=== PATIENT | female | born 1930 | race Caucasian/White ===

== ENCOUNTER 2016-12-27 13:46 | Inpatient (IN) | payer MEDICARE ==
[~2016-12-27] VITALS: Ht 162.6 cm; Wt 41.7 kg
[~2016-12-27 13:46] MED LIST: PANT40TA2 PO
--- NOTE | 2016-12-27 13:55 | NUR ---
PT CAME IN FOR WORSENING OF RIGHT LEG SWELLING X 2 WEEKS. NAD NOTED. DENIES FEVER. NOTED DRY DRESSING ON WOUND. VSS. SAFETY AND COMFORT MEASURES PROVIDED. WILL MONITOR.
--- NOTE | 2016-12-27 13:55 | NUR ---
IV ACCESS STARTED. BLOOD DRAWN FOR LABS.
[2016-12-27] MEDS ORDERED: LEVOFLOXACIN 750 MG /D5W 150ML 150 ML IV ONE (14:45)
--- NOTE | 2016-12-27 14:50 | NUR ---
XRAY DONE AT BS.
--- NOTE | 2016-12-27 14:57 | NUR ---
MRSA SWAB DONE. WOUND CULTURE SWAB DONE.
[2016-12-27] MEDS ORDERED: LEVOFLOXACIN 750 MG /D5W 150ML PIGGYBACK IV ONE (15:00)
[2016-12-27] MEDS ORDERED: VANCOMYCIN 1 GM in IV D5W 250 ML IV ONE (15:00)
[2016-12-27 15:10] LABS: BASOPHILS % (AUTO) 0.4 % (0.0-2.0); EOSINOPHILS % (AUTO) 0.4 % (0.0-6.0); HEMATOCRIT 39 % (33-45); HEMOGLOBIN 12.9 g/dL (11.5-14.8); LYMPHOCYTES # (AUTO) 0.7 /CMM (0.8-4.8); LYMPHOCYTES % (AUTO) 14.2 % (20.0-44.0); MEAN CORPUSCULAR HEMOGLOBIN 31 PG (26.0-33.0); MEAN CORPUSCULAR HGB CONC 34 g/dl (31.0-36.0); MEAN CORPUSCULAR VOLUME 91 fL (82-100); MONOCYTES # (AUTO) 0.4 /CMM (0.1-1.30); MONOCYTES % (AUTO) 8.7 % (2.0-12.0); NEUTROPHILS # (AUTO) 3.8 /CMM (1.8-8.9); NEUTROPHILS % (AUTO) 76.3 % (43.0-81.0); PLATELET COUNT (AUTO) 201 /CMM (150-450); RDW COEFFICIENT OF VARIATION 14.4 (11.5-15.0); RED BLOOD CELL COUNT(AUTO) 4.24 MIL/uL (4.0-5.2)
[2016-12-27 15:20] LABS: PROTHROMBIN TIME 10.7 SECS (9.5-12.7)
[2016-12-27 15:23] LABS: APPEARANCE,URINE SL CLOUDY (CLEAR); BILIRUBIN,URINE NEGATIVE (NEGATIVE); BLOOD, URINE TRACE-INTA Ery/uL (NEGATIVE); COLOR,URINE YELLOW (YELLOW); KETONES,URINE NEGATIVE (NEGATIVE); LEUKOCYTE ESTERASE ,URINE NEGATIVE (NEGATIVE); NITRITE, URINE NEGATIVE (NEGATIVE); PROTEIN,URINE NEGATIVE (NEGATIVE); UGLUCOSE NEGATIVE (NEGATIVE); UROBILINOGEN,URINE 0.2 EU/dL (0.2)
[2016-12-27 15:29] LABS: BACTERIA,URINE Few /HPF (None Seen); SQUAMOUS EPITHELIAL CELL,UR Few /HPF (None Seen); WBC,URINE 0-2 /HPF (0-3)
[2016-12-27 15:32] LABS: CALCIUM, SERUM 8.5 mg/dL (8.5-10.1); CARBON DIOXIDE 29 mmol/L (21-32); CHLORIDE 99 mmol/L (98-107); CREATININE 0.8 mg/dL (0.6-1.3); GLUCOSE 96 mg/dL (74-106); SODIUM SERUM 136 mmol/L (136-145); UREA NITROGEN, BLOOD 12 mg/dL (7-18)
[2016-12-27 15:49] LABS: ALANINE AMINOTRANSFERASE 23 U/L (12-78); ALBUMIN 3.4 g/dL (3.4-5.0); ALKALINE PHOSPHATASE 101 U/L (46-116); ASPARTATE AMINOTRANSFERASE 27 U/L (15-37); BILIRUBIN,DIRECT 0.2 mg/dL (0.0-0.2); BILIRUBIN,TOTAL 0.5 mg/dL (0.2-1.0); TOTAL PROTEIN, SERUM 6.7 g/dL (6.4-8.2)
--- NOTE | 2016-12-27 15:52 | NUR ---
STARLA KU AT BS.
--- NOTE | 2016-12-27 16:03 | NUR ---
CALLED [facility], PROGRAM DEVELOPMENT SPECIALIST WAS PAGED.
--- NOTE | 2016-12-27 16:13 | NUR ---
REPORT GIVEN TO ELDER CALLAHAN FOR MS ROOM 111-1.
[2016-12-27] MEDS ORDERED: ALEN70TA45 PO (16:23)
[2016-12-27] MEDS ORDERED: ASPI-991 PO (16:23)
[2016-12-27] MEDS ORDERED: SULF1TAB48 PO (16:23)
--- NOTE | 2016-12-27 16:24 | NUR ---
DR CHAMBERS ON THE PHONE WITH DR BELL.
--- NOTE | 2016-12-27 17:00 | NUR ---
MS RN ADMITTING NOTES: REC'D REPORT FROM BENY SHETH RN. PT TRANSFERRED VIA GURNEY ACCOMPANIED BY PIE DOUGH ROLLER. PT IS AMBULATORY W/ SPC. ON ROOM AIR, DENIES SOB, SATURATING 100%. PT DENIES ANY PAIN/ DISCOMFORT AT THIS TIME. HAS R AC G20, SL, FLUSHED,PATENT & INTACT W/ NO S/SX OF INFECTION/ INFILTRATION NOTED. PT NOTED R LEG CELLULITIS, APPLIED MEPILEX ON WOUND. PICTURES TAKEN. WOUND CONSULT ORDERED. DR. BELL MADE AWARE OF ADMISSION W/ NEW ORDERS & CARRIED OUT. BELONGINGS CHECKED BY PIE DOUGH ROLLER. PT ORIENTED TO ROOM. PROVIDED COMFORT & SAFETY MEASURES. BED KEPT LOW & IN LOCKED POS. CALL LIGHT PLACED W/IN REACH. ADVISED TO PRESS CALL LIGHT WHEN IN NEED OF ASSISTANCE. FALL PRECAUTION OBSERVED. WILL ENDORSE TO PM RN FOR TANA.
[2016-12-27] MEDS ORDERED: IV NS 0.9% 1,000 ML IV PRN (17:47)
[2016-12-27 18:00] VITALS: BP 132/68
[2016-12-27] MEDS ORDERED: LEVOFLOXACIN 500 MG /D5W 100ML 500 MG in PREMIX 1 EA IV SCH (18:00)
[2016-12-27] MEDS ORDERED: Z GUARD REMEDY 2 OZ OINT TP PRN (18:00)
[2016-12-27] MEDS ORDERED: MAG HYDROX/AL HYDROX/SIMETH 30 ML UDC PO PRN (18:00)
[2016-12-27] MEDS ORDERED: MAGNESIUM HYDROXIDE 30 ML UDC PO PRN (18:00)
[2016-12-27] MEDS ORDERED: ZOLPIDEM TARTRATE 5 MG TABLET PO PRN (18:00)
[2016-12-27] MEDS ORDERED: ONDANSETRON HCL/PF 4 MG/2 ML VIAL IVP PRN (18:00)
[2016-12-27] MEDS ORDERED: ACETAMINOPHEN 325 MG TABLET PO PRN (18:00)
[2016-12-27] MEDS ORDERED: FEE PK DOSING 1 MIN EA MC ONE (18:14)
--- NOTE | 2016-12-27 19:40 | NUR ---
RN INITIAL NOTES: RECEIVED REPORT FROM DAY RN, PT IN BED, AWAKE, A/O X3 ON ROOM AIR DENIES ANY SOB RESPIRATION EVEN AND UNLABORED, DENIES ANY PAIN AT THIS TIME, ASIDE FROM THE REDNESS AND SWELLING ON RLE, PT HAS RIGHT AC IV PATENT AND FLUSHING WELL, INFUSING WITH NS AT 75ML/HR, NO S/S OF REDNESS OR INFILTRATION NOTED. BLE OFFLOADED. PT USES QUAD CANE. SAFETY PRECAUTIONS FOR FALL INITIATED CALL LIGHT IN REACH, WILL CONTINUE TO MONITOR
[2016-12-27 20:00] VITALS: BP 104/54
[2016-12-27] MEDS ORDERED: VANCOMYCIN 1.25 GM in IV D5W 500 ML IV SCH (21:00)
--- NOTE | 2016-12-27 21:38 | NUR ---
RN NOTES: PT REFUSED THE IVDF, SHE STATED SHE WANTS IT REMOVE EVEN THE NEEDLE, SHE STATED THERE IS NO WAY SHE WILL SLEEP TONIGHT WITH THE IV ACCESS IN PLACED, FIRE CONTROL OFFICER MADE AWARE, PER FIRE CONTROL OFFICER ITS OKAY TO REMOVED IV FOR NOW, THEN JUST PUT IT IN AM, EDUCATION PROVIDED TO THE PT, STILL REFUSED IV ACCESS AND FLUID
[2016-12-28 04:00] VITALS: BP 118/53
--- NOTE | 2016-12-28 07:10 | NUR ---
RN CLOSING NOTES: PT IN BED, AWAKE, DENIES ANY PAIN OR DISCOMFORT AT THIS TIME, NO SOB NOTED, PT REFUSED IV INSERTION, ADVENTURE EDUCATION TEACHER AWARE BLE KEPT OFFLOADED,. VS REMAINS STABLE, NEEDS ATTENDED. NO UNTOWARD EVENT HAPPENED THROUGHOUT THE SHIFT. SAFETY PRECAUTIONS REMAINS ENGAGED, CALL LIGHT IN REACH, WILL ENDORSE TO DAY RN FOR TANA.
[2016-12-28 07:19] LABS: BASOPHILS % (AUTO) 0.4 % (0.0-2.0); EOSINOPHILS % (AUTO) 0.8 % (0.0-6.0); HEMATOCRIT 34 % (33-45); HEMOGLOBIN 11.6 g/dL (11.5-14.8); LYMPHOCYTES # (AUTO) 0.7 /CMM (0.8-4.8); LYMPHOCYTES % (AUTO) 19.6 % (20.0-44.0); MEAN CORPUSCULAR HEMOGLOBIN 31 PG (26.0-33.0); MEAN CORPUSCULAR HGB CONC 34 g/dl (31.0-36.0); MEAN CORPUSCULAR VOLUME 91 fL (82-100); MONOCYTES # (AUTO) 0.4 /CMM (0.1-1.30); MONOCYTES % (AUTO) 10.8 % (2.0-12.0); NEUTROPHILS # (AUTO) 2.5 /CMM (1.8-8.9); NEUTROPHILS % (AUTO) 68.4 % (43.0-81.0); PLATELET COUNT (AUTO) 135 /CMM (150-450); RDW COEFFICIENT OF VARIATION 14.3 (11.5-15.0); RED BLOOD CELL COUNT(AUTO) 3.71 MIL/uL (4.0-5.2); WHITE BLOOD COUNT (AUTO) 3.7 K/uL (4.3-11.0)
[2016-12-28 07:34] LABS: CHOLESTEROL 123 mg/dL (<200); HDL CHOLESTEROL 71 mg/dL (40-60); LDL 45 mg/dL (0-99); TRIGLYCERIDES 37 mg/dL (30-150)
[2016-12-28 07:42] LABS: CALCIUM, SERUM 8.1 mg/dL (8.5-10.1); CARBON DIOXIDE 29 mmol/L (21-32); CHLORIDE 106 mmol/L (98-107); CREATININE 0.7 mg/dL (0.6-1.3); GLUCOSE 97 mg/dL (74-106); MAGNESIUM 1.8 mg/dL (1.8-2.4); PHOSPHORUS 3.6 mg/dL (2.5-4.9); POTASSIUM 4.1 mmol/L (3.5-5.1); SODIUM SERUM 142 mmol/L (136-145); UREA NITROGEN, BLOOD 8 mg/dL (7-18)
--- NOTE | 2016-12-28 07:50 | NUR ---
AM RN NOTE Received patient awake, A/O X3 verbally responsive able to make needs known. No acute distress noted. Bed in low locked position. Will continue to monitor.
[2016-12-28 08:00] VITALS: BP 120/53
[2016-12-28] MEDS: ASPIRIN EC 81 MG TABLET.DR PO SCH (08:11)
[2016-12-28] MEDS: PANTOPRAZOLE 40 MG TABLET.DR PO SCH (08:12)
--- NOTE | 2016-12-28 08:44 | NUR ---
AM RN NOTE Re-inserted new IV site on LFA #22 x1 attempt.
[2016-12-28] MEDS: VANCOMYCIN 500 MG in IV D5W 100 ML IV SCH (08:46)
--- NOTE | 2016-12-28 09:52 | NUR ---
WOUND CARE CONSULT PATIENT SEEN AND RIGHT LOWER MEDIAL LEG LESION EVALUATED. SEE CHIEF DIVERSITY OFFICER ASSESSMENT IN PCS FOR TODAY. RECOMMEND DPM CONSULT. RECOMMEND KEEP COVERED WITH MEPILEX FOR PROTECTION FOR NOW UNTIL SEEN BY SURGICAL TEAM. PATIENT CURRENTLY INDEPENDENT WITH BED MOBILITY, AND AMBULATORY AT THIS TIME WITH DAJUAN AT 18. WILL SEE PRN Addendum: 12/28/16 at 0959 by JENELLE HUDSON WNDNU Amended: Links added.
[2016-12-28] MEDS: LEVOFLOXACIN 250 MG /D5W 50 ML 250 MG in PREMIX 1 EA IV SCH (14:18)
[2016-12-28] MEDS: HYDROCODONE/APAP 5/325MG 1 EACH TABLET PO PRN (15:39)
[2016-12-28 16:00] VITALS: BP 131/77
--- NOTE | 2016-12-28 18:30 | NUR ---
AM RN NOTE Patient resting in her bed no acute distress noted. IV site intact and patent. Will endorse care to next shift.
--- NOTE | 2016-12-28 19:30 | NUR ---
MS RN NOTE: PATIENT RESTING IN BED, NO ACUTE DISTRESS NOTED. BREATHING EVEN AND UNLABORED, NO SOB NOTED. IV TO LFA IN PLACE, INFUSING NS AT 75ML/HR. BED LOCKED AND IN LOWEST POSITION, CALL LIGHT IN REACH. WILL CONTINUE TO MONITOR.
[2016-12-28 20:00] VITALS: BP 100/64
[2016-12-29] MEDS: VANCOMYCIN 500 MG in IV D5W 100 ML IV SCH (03:02)
[2016-12-29 04:00] VITALS: BP 95/44
--- NOTE | 2016-12-29 06:30 | NUR ---
MS RN NOTE: PATIENT RESTING IN BED, NO ACUTE DISTRESS NOTED. BREATHING EVEN AND UNLABORED, NO SOB NOTED. IV TO LFA IN PLACE. BED LOCKED AND IN LOWEST POSITION, CALL LIGHT IN REACH. WILL ENDORSE TO DAY NURSE TO CONTINUE WITH PLAN OF CARE.
--- NOTE | 2016-12-29 07:10 | NUR ---
RN INITIAL NOTE PATIENT RECEIVED IN BED, RESTING. EASILY AROUSED, ALERT AND ORIENTED. ABLE TO MAKE NEEDS KNOWN. NO S/S OF PAIN OR DISCOMFORT. DENIES PAIN AT THIS TIME. RESPIRATIONS ARE EVEN AND UNLABORED. SATING WELL ON ROOM AIR. NO S/S OF RESPIRATORY DISTRESS OR SOB. PATIENT IS AMBULATORY. IV SITE FLUSHED, PATENT. SKIN IS WARM AND DRY TO TOUCH. SAFETY PRECAUTIONS IMPLEMENTED. BED IN LOCKED, LOW POSITION WITH TWO SIDE RAILS UP. WILL CONTINUE TO MONITOR CLOSELY.
[2016-12-29 07:16] LABS: BASOPHILS % (AUTO) 0.5 % (0.0-2.0); EOSINOPHILS # (AUTO) 0.1 /CMM (0.0-0.7); EOSINOPHILS % (AUTO) 1.6 % (0.0-6.0); HEMATOCRIT 34 % (33-45); HEMOGLOBIN 11.8 g/dL (11.5-14.8); LYMPHOCYTES # (AUTO) 0.8 /CMM (0.8-4.8); LYMPHOCYTES % (AUTO) 20.7 % (20.0-44.0); MEAN CORPUSCULAR HEMOGLOBIN 31 PG (26.0-33.0); MEAN CORPUSCULAR HGB CONC 35 g/dl (31.0-36.0); MEAN CORPUSCULAR VOLUME 91 fL (82-100); MONOCYTES # (AUTO) 0.4 /CMM (0.1-1.30); MONOCYTES % (AUTO) 10.1 % (2.0-12.0); NEUTROPHILS # (AUTO) 2.6 /CMM (1.8-8.9); NEUTROPHILS % (AUTO) 67.1 % (43.0-81.0); PLATELET COUNT (AUTO) 135 /CMM (150-450); RDW COEFFICIENT OF VARIATION 14.3 (11.5-15.0); RED BLOOD CELL COUNT(AUTO) 3.78 MIL/uL (4.0-5.2); WHITE BLOOD COUNT (AUTO) 3.8 K/uL (4.3-11.0)
[2016-12-29 07:45] LABS: CARBON DIOXIDE 29 mmol/L (21-32); CHLORIDE 107 mmol/L (98-107); CREATININE 0.6 mg/dL (0.6-1.3); GLUCOSE 97 mg/dL (74-106); MAGNESIUM 1.9 mg/dL (1.8-2.4); PHOSPHORUS 3.1 mg/dL (2.5-4.9); POTASSIUM 4.4 mmol/L (3.5-5.1); SODIUM SERUM 142 mmol/L (136-145); UREA NITROGEN, BLOOD 10 mg/dL (7-18)
[2016-12-29] MEDS: PANTOPRAZOLE 40 MG TABLET.DR PO SCH (07:58)
[2016-12-29] MEDS: ASPIRIN EC 81 MG TABLET.DR PO SCH (07:58)
[2016-12-29 08:00] VITALS: BP 114/60
[2016-12-29] MEDS: HYDROCODONE/APAP 5/325MG 1 EACH TABLET PO PRN ×2 (09:41→18:26)
[2016-12-29 12:31] VITALS: BP 100/55
[2016-12-29 16:00] VITALS: BP 107/69
[2016-12-29] MEDS: LEVOFLOXACIN 250 MG /D5W 50 ML 250 MG in PREMIX 1 EA IV SCH (16:08)
[2016-12-29] MEDS ORDERED: LACTOBACILLUS RHAMNOSUS GG 1 EACH CAP.SPRINK PO SCH (17:00)
--- NOTE | 2016-12-29 19:04 | NUR ---
RN CLOSING NOTE PATIENT DISCHARGED HOME. PAPERWORK DONE. IV SITED DISCONTINUED. ID BAND REMOVED. RX GIVEN. CONTACTED RONIT FRIEND TO INFORM OF DISCHARGE.
== END 2016-12-29 19:00 | disposition home or self-care (01) | DRG 603 ==
LOC: ER 15:09 → MEDSG1 17:29
PROVIDERS: ADMIT Internal Medicine; ATTEND Internal Medicine
DX: L03.115 Cellulitis of right lower limb (principal); I50.22 Chronic systolic (congestive) heart failure; L97.819 Non-pressure chronic ulcer of other part of right lower leg with unspecified severity; Z90.710 Acquired absence of both cervix and uterus; Z98.890 Other specified postprocedural states; Z88.0 Allergy status to penicillin; Z88.8 Allergy status to other drugs, medicaments and biological substances; I70.90 Unspecified atherosclerosis; M81.0 Age-related osteoporosis without current pathological fracture; I83.018 Varicose veins of right lower extremity with ulcer other part of lower leg
CPT/HCPCS: 36415; 73590-TC; 80048-TC; 80061-TC; 80076-TC; 81000-TC; 83605-TC; 83735-TC; 84100-TC; 85025-TC; 85730-TC; 87040-TC; 87070-TC; 87081-TC; 87086-TC; 93971-TC; 97001-TC; A4216; A4606; J1956; J3370; J7030; J7060; Z7610

== ENCOUNTER 2017-12-28 07:52 | Inpatient (IN) | payer MEDICARE ==
[~2017-12-28] VITALS: Ht 154.9 cm; Wt 47.2 kg
[~2017-12-28 07:52] MED LIST changes: +ALEN70TA45 PO; +ASPI-1152 PO; +SULF1TAB48 PO
--- NOTE | 2017-12-28 08:00 | NUR ---
S/P GLF C/O RIGHT RIB PAIN, -KO. NAD NOTED, VSS, RESP EVEN AND UNLABORED, PT WAS PUT ON MONITOR, WAITING FOR MD ISBELL.
[2017-12-28 08:49] LABS: CALCIUM, SERUM 8.5 mg/dL (8.5-10.1); CARBON DIOXIDE 32 mmol/L (21-32); CHLORIDE 102 mmol/L (98-107); CREATININE 0.7 mg/dL (0.6-1.3); GLUCOSE 102 mg/dL (74-106); POTASSIUM 3.9 mmol/L (3.5-5.1); SODIUM SERUM 136 mmol/L (136-145); UREA NITROGEN, BLOOD 17 mg/dL (7-18)
[2017-12-28 08:52] LABS: EOSINOPHILS % (AUTO) 0.3 % (0.0-6.0); HEMATOCRIT 38 % (33-45); LYMPHOCYTES # (AUTO) 0.4 /CMM (0.8-4.8); LYMPHOCYTES % (AUTO) 6.8 % (20.0-44.0); MEAN CORPUSCULAR HEMOGLOBIN 32 PG (26.0-33.0); MEAN CORPUSCULAR HGB CONC 34 g/dl (31.0-36.0); MEAN CORPUSCULAR VOLUME 94 fL (82-100); MONOCYTES # (AUTO) 0.7 /CMM (0.1-1.30); MONOCYTES % (AUTO) 13.5 % (2.0-12.0); NEUTROPHILS # (AUTO) 4.3 /CMM (1.8-8.9); NEUTROPHILS % (AUTO) 79.4 % (43.0-81.0); PLATELET COUNT (AUTO) 104 /CMM (150-450); RDW COEFFICIENT OF VARIATION 15.5 (11.5-15.0); RED BLOOD CELL COUNT(AUTO) 4.08 MIL/uL (4.0-5.2); WHITE BLOOD COUNT (AUTO) 5.5 K/uL (4.3-11.0)
[2017-12-28 08:58] LABS: INR 1.03 (0.87-1.13)
[2017-12-28] MEDS ORDERED: IV NS 0.9% 1,000 ML IV PRN (09:48)
[2017-12-28] MEDS ORDERED: ONDANSETRON HCL/PF 4 MG/2 ML VIAL IVP PRN (10:00)
[2017-12-28] MEDS ORDERED: HYDROCODONE/APAP 5/325MG 1 EACH TABLET PO PRN (10:00)
[2017-12-28] MEDS ORDERED: HYDROCODONE/APAP 10/325MG 1 EA TABLET PO PRN (10:00)
[2017-12-28] MEDS ORDERED: ACETAMINOPHEN 325 MG TABLET PO PRN (10:00)
--- NOTE | 2017-12-28 10:15 | NUR ---
NOTARY PUBLIC PATIENT A/OX4, ADMITTED FOR MULTIPLE RIB FRACTURE, PATIENT IS IN NO DISTRESS, ONLY C/O PAIN DURING MOVEMENT, OTHERWISE PT STATED SHE'S COMFORTABLE AND SHE REFUSES PAIN MEDICINE. BREATHING EVEN AND UNLABORED, NO SOB NOTED, SKIN ASSESSMENT COMPLETED, SKIN DRY AND INTACT, PATIENT ABLE TO TURN SLOWLY, KEPT COMFORTABLE, NEEDS ATTENDED, CALL LIGHT WITHIN REACH, WILL CONTINUE TO MONITOR.
[2017-12-28] MEDS ORDERED: Z GUARD REMEDY 2 OZ OINT TP PRN (15:00)
[2017-12-28 16:00] VITALS: BP 134/72
--- NOTE | 2017-12-28 18:26 | NUR ---
RN NOTES PATIENT A/OX3, VERBALLY RESPONSIVE, NO DISTRESS NOTED, NO SHORTNESS OF BREATH OBSERVED. DENIES PAIN AT THIS TIME. IV HYDRATION ONGOING AND TOLERATING WELL, ASSISTED WITH ADLS, OT EVAL DONE, NEEDS ATTENDED AND MET, CALL LIGHT WITHIN REACH, WILL ENDORSE TO NIGHT COURT MAGISTRATE FOR TANA.
--- NOTE | 2017-12-28 19:30 | NUR ---
MS RN OPENING NOTES PATIENT A/OX3, VERBALLY RESPONSIVE, NO DISTRESS OR SOB NOTED. DENIES PAIN AT THIS TIME. IV HYDRATION ONGOING NS 0.9 % AT 73ML/H ,PT HAS TO USE SPIROMETER Q4H,TEACHING DONE. SAFETY PRECAUTIONS IN PLACE, CALL LIGHT WITHIN REACH. WILL CONTINUE TO MONITOR.
[2017-12-28 19:48] LABS: APPEARANCE,URINE CLEAR (CLEAR); BILIRUBIN,URINE NEGATIVE (NEGATIVE); BLOOD, URINE TRACE Ery/uL (NEGATIVE); COLOR,URINE YELLOW (YELLOW); KETONES,URINE NEGATIVE (NEGATIVE); LEUKOCYTE ESTERASE ,URINE NEGATIVE (NEGATIVE); NITRITE, URINE NEGATIVE (NEGATIVE); PROTEIN,URINE NEGATIVE (NEGATIVE); UGLUCOSE NEGATIVE (NEGATIVE); UROBILINOGEN,URINE 0.2 EU/dL (0.2)
[2017-12-28 20:00] VITALS: BP 115/62
[2017-12-28 20:29] LABS: BACTERIA,URINE None seen /HPF (None Seen); SQUAMOUS EPITHELIAL CELL,UR Few /HPF (None Seen); WBC,URINE NONE SEEN /HPF (0-3)
--- NOTE | 2017-12-29 05:55 | NUR ---
PT PULED OUT IV LINE. NO IV ASSESS AT THIS TIME SINCE PT REFUSING.
--- NOTE | 2017-12-29 06:26 | NUR ---
MS RN CLOSING NOTES PATIENT A/OX2, VERBALLY RESPONSIVE, NO DISTRESS OR SOB NOTED. DENIES PAIN AT THIS TIME.PT WAS ENCOURAGED TO USE SPIROMETER Q4. SAFETY PRECAUTIONS IN PLACE, CALL LIGHT WITHIN REACH. WILL ENDORSE TO NEXT SHIFT FOR TANA.
[2017-12-29 06:41] LABS: BASOPHILS % (AUTO) 0.2 % (0.0-2.0); EOSINOPHILS % (AUTO) 1.8 % (0.0-6.0); HEMATOCRIT 35 % (33-45); LYMPHOCYTES # (AUTO) 0.8 /CMM (0.8-4.8); LYMPHOCYTES % (AUTO) 17.3 % (20.0-44.0); MEAN CORPUSCULAR HEMOGLOBIN 32 PG (26.0-33.0); MEAN CORPUSCULAR HGB CONC 34 g/dl (31.0-36.0); MEAN CORPUSCULAR VOLUME 94 fL (82-100); MONOCYTES # (AUTO) 0.6 /CMM (0.1-1.30); MONOCYTES % (AUTO) 13.4 % (2.0-12.0); NEUTROPHILS % (AUTO) 67.3 % (43.0-81.0); PLATELET COUNT (AUTO) 104 /CMM (150-450); RDW COEFFICIENT OF VARIATION 15.6 (11.5-15.0); RED BLOOD CELL COUNT(AUTO) 3.75 MIL/uL (4.0-5.2); WHITE BLOOD COUNT (AUTO) 4.5 K/uL (4.3-11.0)
[2017-12-29 06:48] LABS: CALCIUM, SERUM 7.8 mg/dL (8.5-10.1); CARBON DIOXIDE 29 mmol/L (21-32); CHLORIDE 103 mmol/L (98-107); CREATININE 0.6 mg/dL (0.6-1.3); GLUCOSE 100 mg/dL (74-106); MAGNESIUM 1.7 mg/dL (1.8-2.4); PHOSPHORUS 3.2 mg/dL (2.5-4.9); POTASSIUM 3.6 mmol/L (3.5-5.1); SODIUM SERUM 137 mmol/L (136-145); UREA NITROGEN, BLOOD 14 mg/dL (7-18)
[2017-12-29 06:54] LABS: CHOLESTEROL 128 mg/dL (<200); HDL CHOLESTEROL 82 mg/dL (40-60); LDL 40 mg/dL (0-99); THYROID STIMULATING HORMONE 2.475 uIU/mL (0.358-3.74); TRIGLYCERIDES 34 mg/dL (30-150)
--- NOTE | 2017-12-29 07:03 | NUR ---
MS RN NOTES PATIENT IN BED ALERT ORIENTED X 3. NO ACUTE DISTRESS NOTED. BREATHING UNLABORED. NO SOB NOTED. SAFETY MEASURES IN PLACE,CALL LIGHT WITHIN REACH. WILL CONTINUE TO MONITOR ACCORDINGLY. NO IV ACCESS AT THIS TIME, OFFERED TO INSERT NEW IV LINE , PATIENT REFUSING NOW. WILL TRY AGAIN LATER. WILL CONTINUE TO MONITOR ACCORDINGLY.
[2017-12-29 08:00] VITALS: BP 126/66
[2017-12-29] MEDS: ASPIRIN EC 81 MG TABLET.DR PO SCH (08:24)
[2017-12-29] MEDS: PANTOPRAZOLE 40 MG TABLET.DR PO SCH (08:24)
[2017-12-29] MEDS: Magnesium 1GM/D5W 100ML PREMIX 100 ML IV SCH ×2 (10:52→12:09)
--- NOTE | 2017-12-29 13:33 | NUR ---
MS RN NOTES SEEN AND EVALUATED BY DR SOW WITH NEW ORDERS MADE, NOTED AND CARRIED.
[2017-12-29 16:00] VITALS: BP 136/69
--- NOTE | 2017-12-29 18:42 | NUR ---
MS RN NOTES PATIENT IN BED ALERT ORIENTED X 3. NO ACUTE DISTRESS NOTED. BREATHING UNLABORED. NO SOB NOTED. DENIED ANY PAIN. SAFETY MEASURES IN PLACE,CALL LIGHT WITHIN REACH. IV ACCESS PATENT AND INTACT, NO REDNESS OR SWELLING NOTED. DUE MEDICATIONS GIVEN, NO ASE NOTED. NEEDS ATTENDED AND ANTICIPATED. KEPT CLEAN , DRY AND COMFORTABLE. WILL CONTINUE TO MONITOR ACCORDINGLY. WILL ENDORSE TO NIGHT NURSE FOR CONTINUITY IF CARE.
--- NOTE | 2017-12-29 19:12 | NUR ---
MS RN OPENING NOTES PATIENT IN BED ALERT ORIENTED X 3. NO ACUTE DISTRESS NOTED, DENIED PAIN AT THIS TIME. SAFETY MEASURES IN PLACE,CALL LIGHT WITHIN REACH. IV ACCESS PATENT AND INTACT, NO REDNESS OR SWELLING NOTED, BUT PT ASKING TO REMOVE IV LINE BECAUSE SHE WANTS TO SLEEP WELL. EDUCATED THE PT ABOUT IMPORTANCES TO HAVE IV LINE IN CASE OF EMERGENCY SITUATION. PT DISAGREE . CHARGE NURSE AWARE. WILL CONTINUE TO MONITOR ACCORDINGLY.
[2017-12-29 20:00] VITALS: BP 135/65
--- NOTE | 2017-12-30 06:48 | NUR ---
MS RN CLOSING NOTES PATIENT IN BED ALERT ORIENTED X 3. NO ACUTE DISTRESS NOTED, DENIED PAIN AT THIS TIME.VS ARE STABLE. PT PULLED OUT IV LINE AND REFUSED ATTEMPT TO INSERT A NEW ONE. SAFETY MEASURES IN PLACE,CALL LIGHT WITHIN REACH. WILL ENDORSE TO NXT SHIFT FOR TANA.
[2017-12-30 08:00] VITALS: BP 134/66
[2017-12-30] MEDS: ASPIRIN EC 81 MG TABLET.DR PO SCH (08:07)
[2017-12-30] MEDS: PANTOPRAZOLE 40 MG TABLET.DR PO SCH (08:07)
--- NOTE | 2017-12-30 15:57 | NUR ---
MS RN NOTES RECEIVED DIETARY RECOMMENDATION FROM VALERIO FOR ENSURE ENLIVE TID , MVI DAILY AND DAILY WEIGHT , NOTIFIED NADEEN GOODSON, AGREED, WITH NEW ORDERS MADE, NOTED AND CARRIED OUT
[2017-12-30 16:00] VITALS: BP 131/60
[2017-12-30] MEDS: ENSURE ENLIVE 237 ML LIQUID (VANILLA) PO SCH (18:47)
--- NOTE | 2017-12-30 19:00 | NUR ---
MS RN NOTES PATIENT IN BED ALERT ORIENTED X 3. NO ACUTE DISTRESS NOTED, BREATHING UNLABORED. DENIED ANY PAIN. NO SOB NOTED. IV ACCESS PATENT AND INTACT, NO REDNESS AND SWELLING NOTED. DUE MEDICATIONS GIVEN, NO ASE NOTED. NEEDS ATTENDED AND ANTICIPATED. CALL LIGHT WITHIN REACH. ENDORSED TO NIGHT NURSE FOR CONTINUITY OF CARE.
--- NOTE | 2017-12-30 19:15 | NUR ---
MS RN OPENING NOTES PATIENT IN BED ALERT ORIENTED X 3. FINISHING DINNER. NO ACUTE DISTRESS NOTED, DENIED PAIN AT THIS TIME. SAFETY MEASURES IN PLACE,CALL LIGHT WITHIN REACH. IV ACCESS PATENT AND INTACT, NO REDNESS OR SWELLING NOTED.WILL CONTINUE TO MONITOR.
[2017-12-30 19:54] VITALS: BP 138/78
[2017-12-30 20:00] VITALS: BP 138/78
--- NOTE | 2017-12-31 07:20 | NUR ---
MS RN CLOSING NOTES PATIENT IN BED ALERT ORIENTED X 3. NO ACUTE DISTRESS NOTED, DENIED PAIN AT THIS TIME.VS ARE STABLE.SAFETY MEASURES IN PLACE,CALL LIGHT WITHIN REACH. WILL ENDORSE TO NEXT SHIFT FOR TANA.
[2017-12-31 08:00] VITALS: BP 138/65
[2017-12-31] MEDS: ENSURE ENLIVE 237 ML LIQUID (VANILLA) PO SCH ×2 (08:00→15:23)
--- NOTE | 2017-12-31 08:00 | NUR ---
MS RN NOTES PATIENT IN BED RESTING NO SOB OR ACUTE DISTRESS NOTED. PATIENT ALERT, ORIENTED X3 DENIES ANY PAIN OR DISCOMFORT ONLY REPORTS PAIN WITH MOVEMENT. PATIENT WITH PATENT PERIPHERAL IV INTACT PATENT. BED IN LOW LOCKED POSITION. CALL LIGHT WITHIN REACH. WILL CONTINUE TO MONITOR.
[2017-12-31] MEDS: ASPIRIN EC 81 MG TABLET.DR PO SCH (08:35)
[2017-12-31] MEDS: PANTOPRAZOLE 40 MG TABLET.DR PO SCH (08:38)
[2017-12-31] MEDS ORDERED: MULTIVITAMINS,THERAGRAN 1 UDTAB TABLET PO SCH (09:00)
--- NOTE | 2017-12-31 16:30 | NUR ---
MS RN NOTES PATIENT DISCHARGED TO [facility] . PATIENT ALERT, ORIENTED X3. DENIES ANY PAIN. DISCHARGE TEACHING PROVIDED TO PATIENT. REPORT GIVEN TO JEWEL CALLAHAN AT [facility]. ALL BELONGINGS ACCOUNTED, BELONGING LIST SIGNED. AWARE OF ALL ABNORMAL LABS. VS WNL. PERIPHERAL IV REMOVED. ID BAND REMOVED. PATIENT TRANSFERRED TO [facility].
== END 2017-12-31 16:40 | DRG 183 ==
LOC: ER 07:54 → MED 09:58
PROVIDERS: ADMIT Nurse Practitioner Acute Care; ATTEND Nurse Practitioner Acute Care
DX: S22.42XA Multiple fractures of ribs, left side, initial encounter for closed fracture (principal); E43 Unspecified severe protein-calorie malnutrition; I50.32 Chronic diastolic (congestive) heart failure; J98.11 Atelectasis; Z68.1 Body mass index [BMI] 19.9 or less, adult; J90 Pleural effusion, not elsewhere classified; M80.88XA Other osteoporosis with current pathological fracture, vertebra(e), initial encounter for fracture; W01.0XXA Fall on same level from slipping, tripping and stumbling without subsequent striking against object, initial encounter; Y92.009 Unspecified place in unspecified non-institutional (private) residence as the place of occurrence of the external cause; Z88.0 Allergy status to penicillin; Z88.8 Allergy status to other drugs, medicaments and biological substances; Z79.82 Long term (current) use of aspirin; I70.0 Atherosclerosis of aorta; R26.9 Unspecified abnormalities of gait and mobility; R53.81 Other malaise; Z83.3 Family history of diabetes mellitus; Z90.710 Acquired absence of both cervix and uterus; Z91.81 History of falling
CPT/HCPCS: 36415; 71045-TC; 71100-TC; 71250-TC; 80048-TC; 80061-TC; 81000-TC; 83735-TC; 84100-TC; 84443-TC; 85025-TC; 85730-TC; 87081-TC; 94799-TC; A4606; J3475; J7030; Z7610

== ENCOUNTER 2019-11-01 20:07 | Inpatient (IN) | payer MEDICARE, OTHER ==
[~2019-11-01] VITALS: Ht 154.9 cm; Wt 40.4 kg
[~2019-11-01 20:07] MED LIST changes: -ALEN70TA45 PO; -PANT40TA2 PO; -SULF1TAB48 PO
--- NOTE | 2019-11-01 20:08 | NUR ---
PT AAOX4. BIBRA C/O FALL. MD AT BEDSIDE SPEAKING TO PT. PT STATED SHE FELL A LONG TIME AGO WHCIH IS WHY ONE OF HER LEGS IS SHORTER THAN THE OTHER. PT STATED SHE DID NOT HAVE A RECENT FALL. VSS. AWAITING MD FOR ORDERS.
--- NOTE | 2019-11-01 20:10 | NUR ---
RR EVEN AND UNLABORED. SELENA PAIN. VSS.
--- NOTE | 2019-11-01 20:28 | NUR ---
INSTRUMENTS SALES REPRESENTATIVE AT BEDSIDE FOR LABS
[2019-11-01] MEDS ORDERED: IV NS 0.9% 1,000 ML BAG IV ONE (20:30)
[2019-11-01 20:33] LABS: BASOPHILS % (AUTO) 0.4 % (0.0-2.0); HEMATOCRIT 45 % (33-45); HEMOGLOBIN 15.1 g/dL (11.5-14.8); LYMPHOCYTES # (AUTO) 0.6 /CMM (0.8-4.8); LYMPHOCYTES % (AUTO) 5.4 % (20.0-44.0); MEAN CORPUSCULAR HGB CONC 33 g/dl (31.0-36.0); MEAN CORPUSCULAR VOLUME 90 fL (82-100); MONOCYTES % (AUTO) 9.1 % (2.0-12.0); NEUTROPHILS # (AUTO) 9.5 /CMM (1.8-8.9); NEUTROPHILS % (AUTO) 85.1 % (43.0-81.0); PLATELET COUNT (AUTO) 126 /CMM (150-450); RED BLOOD CELL COUNT(AUTO) 5.03 MIL/uL (4.0-5.2); WHITE BLOOD COUNT (AUTO) 11.2 K/uL (4.3-11.0)
[2019-11-01 20:57] LABS: CALCIUM, SERUM 8.6 mg/dL (8.5-10.1); CARBON DIOXIDE 25 mmol/L (21-32); CHLORIDE 104 mmol/L (98-107); CREATININE 0.8 mg/dL (0.6-1.3); GLUCOSE 101 mg/dL (74-106); POTASSIUM 3.3 mmol/L (3.5-5.1); SODIUM SERUM 139 mmol/L (136-145); UREA NITROGEN, BLOOD 25 mg/dL (7-18)
[2019-11-01 21:03] LABS: ALANINE AMINOTRANSFERASE 30 U/L (12-78); ALBUMIN 3.3 g/dL (3.4-5.0); ALKALINE PHOSPHATASE 85 U/L (46-116); ASPARTATE AMINOTRANSFERASE 71 U/L (15-37); BILIRUBIN,DIRECT 0.8 mg/dL (0.0-0.2); BILIRUBIN,TOTAL 1.9 mg/dL (0.2-1.0); LIPASE 32 U/L (73-393); TOTAL PROTEIN, SERUM 5.7 g/dL (6.4-8.2)
--- NOTE | 2019-11-01 21:09 | NUR ---
TROP 1.420
[2019-11-01] MEDS ORDERED: ASPIRIN 325 MG TABLET ONE (21:12)
--- NOTE | 2019-11-01 21:23 | NUR ---
EMT AT BEDSIDE FOR EKG
[2019-11-01] MEDS ORDERED: ASPIRIN 325 MG TABLET PO ONE (21:30)
--- NOTE | 2019-11-01 21:57 | NUR ---
REPORT GIVEN TO RUSSEL CALLAHAN FOR TANA
--- NOTE | 2019-11-01 22:16 | NUR ---
PT TRANSFERED PER ACLS PROTOCOL
[2019-11-01] MEDS ORDERED: MAGNESIUM HYDROXIDE 30 ML UDC PO PRN (22:30)
[2019-11-01] MEDS ORDERED: MORPHINE SULFATE INJ 2 MG/ML DISP.SYRIN IV PRN (22:30)
[2019-11-01] MEDS ORDERED: ONDANSETRON HCL/PF 4 MG/2 ML VIAL IVP PRN (22:30)
[2019-11-01] MEDS ORDERED: ACETAMINOPHEN 325 MG TABLET PO PRN (22:30)
[2019-11-01] MEDS ORDERED: MAG HYDROX/AL HYDROX/SIMETH 30 ML UDC PO PRN (22:30)
[2019-11-01] MEDS ORDERED: Z GUARD REMEDY 2 OZ OINT TP PRN (22:30)
[2019-11-01] MEDS ORDERED: HYDROCODONE/APAP 5/325MG 1 EACH TABLET PO PRN (22:30)
[2019-11-01 22:45] VITALS: BP 153/75
--- NOTE | 2019-11-01 23:00 | NUR ---
HALL TENDER NOTES 2235 - Received patient from ER via [facility], accompanied by 2 ER staff. Admitted to Tele 307-1 due to NSTEMI under the service of Dr. Brand. Transferred patient to bed comfortably. Admission routine done. Patient noted non-ambulatory at this time. Initial skin assessment done, noted a scab on forehead POA. On RA, no SOB/respiratory distress noted. Patient denies any discomfort at this time. On tele monitor with NSR with elevated T-wave. Admitting MD notified. Admission orders noted any carried out. Provided snacks, well tolerated by the patient. Encouraged to increase oral fluid intake unless contraindicated. Kept on bed clean, dry and comfortable. Will continue to monitor accordingly.
[2019-11-01] MEDS: METOPROLOL TARTRATE 25 MG TABLET PO SCH (23:08)
--- NOTE | 2019-11-01 23:30 | NUR ---
RN NOTES VTE: 3. Educated patient DVT pump, verbalized understanding. Applied as indicated. Pt on Lovenox to start in AM per pharmacy scheduling.
[2019-11-01 23:39] VITALS: BP 153/75
[2019-11-02] VITALS: BP 149/50
[2019-11-02 00:13] VITALS: BP 149/50
--- NOTE | 2019-11-02 00:49 | NUR ---
RN NOTES 0042 - Received call from lab by Moise England about a critical value: Trop I 1.535. Patient remained stable, denies any discomfort at this time. 0047 - On MD, Dr. Anu Brand, notified with NNO. Will continue to monitor accordingly.
[2019-11-02 04:17] VITALS: BP 135/71
--- NOTE | 2019-11-02 07:09 | NUR ---
RN CLOSING NOTES Patient comfortably on bed. No complaints made. With confusion noted. Afebrile the whole shift, no new unusualities. All nursing needs attended. Due meds given as ordered. Kept on bed clean, dry and comfortable. Endorsed.
[2019-11-02 08:00] VITALS: BP 140/69
--- NOTE | 2019-11-02 08:00 | NUR ---
MS RN NOTES PATIENT IN BED RESTING NO SOB OR ACUTE DISTRESS NOTED. PATIENT ALERT, ORIENTED X3. PERIPHERAL IV NOTED DISLODGED. BED IN LOW LOCKED POSITION. CALL LIGHT WITHIN REACH. WILL CONTINUE TO MONITOR.
[2019-11-02] MEDS: ASPIRIN EC 81 MG TABLET.DR PO SCH (08:17)
[2019-11-02] MEDS: METOPROLOL TARTRATE 25 MG TABLET PO SCH ×2 (08:18→20:27)
[2019-11-02] MEDS ORDERED: ENOXAPARIN SODIUM 60 MG/0.6 ML DISP.SYRIN SQ ONE (08:56)
[2019-11-02 08:58] LABS: BASOPHILS % (AUTO) 0.3 % (0.0-2.0); EOSINOPHILS % (AUTO) 0.9 % (0.0-6.0); HEMATOCRIT 43 % (33-45); LYMPHOCYTES # (AUTO) 1.2 /CMM (0.8-4.8); MEAN CORPUSCULAR HGB CONC 33 g/dl (31.0-36.0); MEAN CORPUSCULAR VOLUME 90 fL (82-100); MONOCYTES % (AUTO) 12.1 % (2.0-12.0); NEUTROPHILS # (AUTO) 6.1 /CMM (1.8-8.9); NEUTROPHILS % (AUTO) 72.7 % (43.0-81.0); PLATELET COUNT (AUTO) 118 /CMM (150-450); RED BLOOD CELL COUNT(AUTO) 4.71 MIL/uL (4.0-5.2); WHITE BLOOD COUNT (AUTO) 8.4 K/uL (4.3-11.0)
[2019-11-02] MEDS ORDERED: ENOXAPARIN SODIUM 30 MG/0.3 ML DISP.SYRIN SQ SCH (09:00)
[2019-11-02] MEDS ORDERED: IOHEXOL-350 100 ML VIAL IV ONE (09:13)
[2019-11-02] MEDS ORDERED: IV NS 0.9% 250 ML IV ONE (09:14)
[2019-11-02 09:15] LABS: CALCIUM, SERUM 8.2 mg/dL (8.5-10.1); CREATININE 0.6 mg/dL (0.6-1.3); MAGNESIUM 1.8 mg/dL (1.8-2.4); PHOSPHORUS 2.5 mg/dL (2.5-4.9); POTASSIUM 3.3 mmol/L (3.5-5.1)
[2019-11-02 09:24] LABS: THYROID STIMULATING HORMONE 4.588 uIU/mL (0.358-3.74)
[2019-11-02] MEDS ORDERED: METOPROLOL TARTRATE INJ 5 MG/5 ML AMPUL IVP PRN (09:30)
[2019-11-02] MEDS ORDERED: IV NS 0.9% 500 ML IV PRN (09:30)
[2019-11-02] MEDS ORDERED: NITROGLYCERIN 0.4 MG/TAB BOTTLE SL PRN (09:30)
[2019-11-02] MEDS: ATORVASTATIN 10 MG TABLET PO SCH (09:42)
[2019-11-02] MEDS: POTASSIUM CHLORIDE 20 MEQ TAB.PRT.SR PO SCH ×3 (09:42→11:15)
--- NOTE | 2019-11-02 10:00 | NUR ---
RECORD PRODUCER NOTES NEW PERIPHERAL IV INSERTED G 18 RIGHT AC. PATIENT CONSENTED TO CT ANGIO WILL CONTINUE TO MONITOR.
[2019-11-02] MEDS: METOPROLOL TARTRATE 50 MG TABLET PO SCH ×2 (11:32→17:38)
[2019-11-02] MEDS ORDERED: METOPROLOL TARTRATE INJ 5 MG/5 ML AMPUL ONE ×2 (11:47→11:56)
--- NOTE | 2019-11-02 12:29 | NUR ---
PONY ROLL FINISHER NOTES TRANSFERRED PT TO TELE FLOOR STABLE , NO ACUTE EVENTS DURING CTA PROCEDURE, NO DISTRESS , DENIES DIZZINESS , BP OF 102/48 , HR SR 66 RR 19 , SPO2 OF 99% VIA RA , REPORT GIVEN TO CARMEN FOR CONTINUITY OF CARE .
[2019-11-02 16:00] VITALS: BP 123/63
--- NOTE | 2019-11-02 18:17 | NUR ---
MS RN NOTES PATIENT IN BED RESTING NO SOB OR ACUTE DISTRESS NOTED. NO ACUTE CHANGES NOTED DURING SHIFT. PATIENT S/P CT ANGIO TOLERATED IT WELL. WILL ENDORSE CARE TO PM SHIFT
[2019-11-02 20:00] VITALS: BP_SYST 130; BP_SYST 164; BP_DIAS 62; BP_DIAS 64
[2019-11-02] MEDS: ENOXAPARIN SODIUM 100 MG/ML DISP.SYRIN SQ SCH (20:26)
[2019-11-02] MEDS ORDERED: LOPERAMIDE HCL (2 MG CAP) 2 MG CAPSULE PO PRN (20:30)
[2019-11-03] VITALS: BP 116/62
[2019-11-03 00:01] VITALS: BP 116/62
[2019-11-03] MEDS: METOPROLOL TARTRATE 50 MG TABLET PO SCH ×2 (00:11→05:18)
[2019-11-03 04:00] VITALS: BP_SYST 108; BP_DIAS 55; BP_DIAS 59
--- NOTE | 2019-11-03 07:07 | NUR ---
307-1 TELE/RN NOTES PATIENT ALERT X2, ABLE TO PARTICIPATE WITH CARE BUT REQUIRE MONITOIRNG FOR SAFETY. ON ROOM AIR, RESPIRATIONS EVEN AND UNLABORED, SKIN WARM TO TOUCH, ATTENDED TO ALL NEEDS, ASSISTED TO BATHROOM FOR SAFETY, MONITOREDF FOR ANY CHANGES, CALL LIGHTS WITHIN REACH, PROVIDED FLUIDS,IV SITE PATENT. WILL ENDORSE TO AM RN FOR TANA. TELE SINUS RYTHM.
[2019-11-03 07:10] LABS: BASOPHILS % (AUTO) 0.4 % (0.0-2.0); EOSINOPHILS % (AUTO) 2.1 % (0.0-6.0); HEMATOCRIT 41 % (33-45); HEMOGLOBIN 13.9 g/dL (11.5-14.8); LYMPHOCYTES # (AUTO) 1.3 /CMM (0.8-4.8); LYMPHOCYTES % (AUTO) 15.7 % (20.0-44.0); MEAN CORPUSCULAR HGB CONC 34 g/dl (31.0-36.0); MEAN CORPUSCULAR VOLUME 90 fL (82-100); MONOCYTES % (AUTO) 11.6 % (2.0-12.0); NEUTROPHILS # (AUTO) 5.9 /CMM (1.8-8.9); NEUTROPHILS % (AUTO) 70.2 % (43.0-81.0); PLATELET COUNT (AUTO) 133 /CMM (150-450); RED BLOOD CELL COUNT(AUTO) 4.59 MIL/uL (4.0-5.2); WHITE BLOOD COUNT (AUTO) 8.4 K/uL (4.3-11.0)
[2019-11-03 07:11] LABS: ALBUMIN 2.8 g/dL (3.4-5.0); CALCIUM, SERUM 8.5 mg/dL (8.5-10.1); CREATININE 0.6 mg/dL (0.6-1.3); PHOSPHORUS 1.5 mg/dL (2.5-4.9); POTASSIUM 4.6 mmol/L (3.5-5.1); TOTAL PROTEIN, SERUM 5.5 g/dL (6.4-8.2)
[2019-11-03 07:19] LABS: MAGNESIUM 1.9 mg/dL (1.8-2.4)
--- NOTE | 2019-11-03 07:40 | NUR ---
SILK SCREEN PRINTING RACKER NOTES RECEIVED PT IN BED, ASLEEP, EASILY AROUSED, A/OX2-3. PT TOLERATING RA, WITH NO ACUTE RESPIRATORY DISTRESS NOTED. ON TELEMONITORING WITH SR, INVERTED T WAVE AND OCASIONAL PACS, HR 79, PT DENIES ANY CHEST PAIN OR ANY DISCOMFORT. IVF D5NS AT 80ML/HR TO RAC G18, INTACT AND OPERATIONAL. PT KEPT COMFORTABLE IN BED. CALL LIGHT KEPT WITHIN REACH. PT'S BED IN LOWEST, LOCKED POSITION WITH SRX3. WILL CONTINUE PLAN OF CARE.
[2019-11-03 08:00] VITALS: BP 110/66
--- NOTE | 2019-11-03 08:30 | NUR ---
VACUUM SPINDLE SANDER NOTES ENDORSED TO JAIRO/SINDY FOR TANA.
[2019-11-03] MEDS: ENOXAPARIN SODIUM 100 MG/ML DISP.SYRIN SQ SCH ×2 (09:00→09:27)
[2019-11-03] MEDS: METOPROLOL TARTRATE 25 MG TABLET PO SCH (09:25)
[2019-11-03] MEDS: ATORVASTATIN 10 MG TABLET PO SCH (09:25)
[2019-11-03] MEDS: ASPIRIN EC 81 MG TABLET.DR PO SCH (09:25)
[2019-11-03] MEDS ORDERED: NEUTRA PHOS 1 POWD.PACKET PO ONE (13:30)
--- NOTE | 2019-11-03 14:09 | NUR ---
Social Service consult requested by MD due to pt being elderly and residing alone. INTERVENTIONAL NURSE consulted with case management and pt is being referred for SNF placement. Per case management assistant Santy, pt's daughter is willing for pt to go to a SNF.
[2019-11-03 16:00] VITALS: BP 110/55
[2019-11-03] MEDS: ENSURE ENLIVE CHOC 237 ML CAN PO SCH (18:41)
--- NOTE | 2019-11-03 18:43 | NUR ---
RN MS3 PATIENT STABLE AT THIS TIME, VITALS STABLE, NO CHANGE IN CONDITION, PATIENT AWITING PLACEMENT, DAUGHTER IS AWARE OF SITUATION. NO SOB. NO PAIN. NO ACUTE RESPIRATORY DISTRESS AT THIS TIME. BED LOCKED LOWEST POSITION CALL LIGHT WITH IN REACH ALL SAFETY MEASURE IMPLEMENTED PER HOSPITAL POLICY
--- NOTE | 2019-11-03 19:45 | NUR ---
MSRN FULLY AWAKE, , NO NEEDS OF THIS TIME. STATED DOES NOT LIKE FOOD SERVED THIS EVENING, OFFERED PATIENT NUTRITION FOOD AVAILABLE, DECLINED. REMINDED TO CALL STAFF FOR ANY ASSISTANCE OR DISCOMFORTS. SAFETY PRECAUTIONS EMPHASIZED, WELL UNDERSTOOD. CLOSELY WATCHED.
[2019-11-03 21:11] VITALS: BP 127/62
[2019-11-04 00:30] VITALS: BP 99/64
[2019-11-04 05:20] VITALS: BP 124/60
[2019-11-04 06:24] LABS: BASOPHILS % (AUTO) 0.5 % (0.0-2.0); EOSINOPHILS % (AUTO) 2.6 % (0.0-6.0); HEMATOCRIT 36 % (33-45); HEMOGLOBIN 12.2 g/dL (11.5-14.8); LYMPHOCYTES # (AUTO) 0.7 /CMM (0.8-4.8); LYMPHOCYTES % (AUTO) 17.3 % (20.0-44.0); MEAN CORPUSCULAR HGB CONC 34 g/dl (31.0-36.0); MEAN CORPUSCULAR VOLUME 90 fL (82-100); MONOCYTES # (AUTO) 0.6 /CMM (0.1-1.30); MONOCYTES % (AUTO) 14.6 % (2.0-12.0); NEUTROPHILS # (AUTO) 2.8 /CMM (1.8-8.9); PLATELET COUNT (AUTO) 101 /CMM (150-450); RED BLOOD CELL COUNT(AUTO) 4.01 MIL/uL (4.0-5.2); WHITE BLOOD COUNT (AUTO) 4.3 K/uL (4.3-11.0)
[2019-11-04 06:40] LABS: CALCIUM, SERUM 7.9 mg/dL (8.5-10.1); CARBON DIOXIDE 32 mmol/L (21-32); CHLORIDE 104 mmol/L (98-107); CREATININE 0.5 mg/dL (0.6-1.3); GLUCOSE 108 mg/dL (74-106); PHOSPHORUS 2.7 mg/dL (2.5-4.9); POTASSIUM 3.9 mmol/L (3.5-5.1); SODIUM SERUM 136 mmol/L (136-145); UREA NITROGEN, BLOOD 23 mg/dL (7-18)
--- NOTE | 2019-11-04 07:20 | NUR ---
ms rn received on bed,awake,alert,oriented x4,not in any form of distress, respirations even and unlabored,no sob noted,lungs are clear,abdomen soft,positive bowel sounds,denies pain at this time,will monitor patient,all needs attended.
[2019-11-04 08:00] VITALS: BP 146/74
--- NOTE | 2019-11-04 08:30 | NUR ---
ms nava breakfast served,due meds given,tolerated well.
[2019-11-04] MEDS: ASPIRIN EC 81 MG TABLET.DR PO SCH (08:53)
[2019-11-04] MEDS: ATORVASTATIN 10 MG TABLET PO SCH (08:53)
[2019-11-04] MEDS ORDERED: VALSARTAN 80 MG TABLET PO SCH (09:00)
[2019-11-04] MEDS: ENSURE ENLIVE CHOC 237 ML CAN PO SCH ×2 (09:03→17:44)
[2019-11-04] MEDS ORDERED: VALS80TA2 PO (10:09)
[2019-11-04] MEDS ORDERED: ATOR10TA PO (10:09)
--- NOTE | 2019-11-04 10:30 | NUR ---
ms rn was seen by dr. antoni duran/ orders made and carried out.
--- NOTE | 2019-11-04 12:00 | NUR ---
ms rn patient will be going to rehab today.all needs attended.
[2019-11-04 16:00] VITALS: BP 139/68
--- NOTE | 2019-11-04 16:54 | NUR ---
ms rn on bed, still waiting for her ride, discharge instructions given, daughter aware w/ transfer to rehab.
== END 2019-11-04 19:10 | DRG 280 ==
LOC: ER 20:09 → TELE 22:03 → MED 11-03 12:16
PROVIDERS: ADMIT Internal Medicine; ATTEND Student in an Organized Health Care Education/Training Program
DX: I21.4 Non-ST elevation (NSTEMI) myocardial infarction (principal); N17.0 Acute kidney failure with tubular necrosis; E43 Unspecified severe protein-calorie malnutrition; D68.59 Other primary thrombophilia; I31.3 Pericardial effusion (noninflammatory); R64 Cachexia; D69.6 Thrombocytopenia, unspecified; E86.0 Dehydration; Z90.710 Acquired absence of both cervix and uterus; I25.10 Atherosclerotic heart disease of native coronary artery without angina pectoris; Z88.0 Allergy status to penicillin; Z88.8 Allergy status to other drugs, medicaments and biological substances; Z79.82 Long term (current) use of aspirin; E87.6 Hypokalemia; Z83.3 Family history of diabetes mellitus; I70.0 Atherosclerosis of aorta; D72.829 Elevated white blood cell count, unspecified; I10 Essential (primary) hypertension; Z74.09 Other reduced mobility
CPT/HCPCS: 36415; 75574; 80048-TC; 80053-TC; 80061-TC; 80076-TC; 83605-TC; 83690-TC; 83735-TC; 84100-TC; 84439-TC; 84443-TC; 84484-TC; 85025-TC; 87081-TC; 93307-TC; 93970-TC; 97110-TC; 97116-TC; 97530-TC; G0378; J1650; J3490; J7030; J7050; Q9967